=== PATIENT | female | born 1970 | race American Indian/Alaskan Native ===

== ENCOUNTER 2017-11-17 22:24 | Observation (INO) | payer OTHER ==
[2017-11-18 00:01] LABS: Basophils % (Auto) 0.3 % (0.0-1.8); Eosinophils % (Auto) 0.4 % (0.0-4.3); Hematocrit 44.8 % (30.3-42.9); Hemoglobin 15.5 gm/dl (10.1-14.3); Lymphocytes # (Auto) 2.2 K/mm3 (1.2-5.4); Lymphocytes % (Auto) 26.9 % (13.4-35.0); Mean Corpuscular HGB Conc 35 % (30-34); Mean Corpuscular Hemoglobin 31 pg (28-32); Mean Corpuscular Volume 88 fl (79-97); Monocytes # (Auto) 0.9 K/mm3 (0.0-0.8); Monocytes % (Auto) 10.9 % (0.0-7.3); Platelet Count 232 K/mm3 (140-440); Red Blood Count 5.09 M/mm3 (3.65-5.03); Red Cell Distribution Width 14.5 % (13.2-15.2)
[2017-11-18 00:09] LABS: BUN/Creatinine Ratio 17; Blood Urea Nitrogen 17 mg/dL (7-17); Calcium 10.1 mg/dL (8.4-10.2); Hemolysis Index 3
[2017-11-18] MEDS ORDERED: MORPHINE IV ONE (00:19)
[2017-11-18] MEDS ORDERED: ZOFRAN IV ONE (00:19)
--- NOTE | 2017-11-18 00:43 | Emergency Department Report ---
ED Chest Pain HPI - General Chief Complaint: Chest Pain Stated Complaint: CHEST PAIN Time Seen by Provider: 11/17/17 23:57 Source: patient Mode of arrival: Stretcher Limitations: No Limitations - History of Present Illness Initial Comments: 47 year old female with a past medical history of hypertension, asthma, HIV ( undetectable viral load), and obesity presents to the hospital with complaints of headache and chest pain. Patient has had a headache for 4 days. Pain is frontal and posterior. Pain has been constant, rated 5/10 in intensity, sharp in nature. No aggravating or alleviating factors. Patient did have blurred vision last night that has since improved. No focal weakness or numbness reported. Positive nausea without vomiting. This a.m. patient woke up with left-sided intermittent chest tightness with associated shortness of breath. Symptoms worsened throughout the day. Patient took her blood pressure at home and noted it to be elevated. She went to fire department BP was 210/110 and heart rate 141. Patient received saline 1 nitroglycerin 2 and blood pressure decreased to 155/105 and heart rate 136. Patient's chest pain improved after nitroglycerin headache persists. She denies previous history of stress testing , recent travel, DVT or PE.. She has not compliant with her blood pressure medications 1 week. She restarted the medication on the . Severity scale (0 -10): 5 - Related Data Home Medications Medication Instructions Recorded Confirmed Last Taken Lisinopril mg PO DAILY 07/02/16 Unknown Norvasc mg PO DAILY 07/02/16 Unknown Previous Rx's Medication Instructions Recorded Last Taken Type Ciprofloxacin HCl [Ciprofloxacin 500 mg PO BID #20 tablet 07/02/16 Unknown Rx TAB] Ondansetron [Zofran Odt] 4 mg PO Q8HR #20 tab.rapdis 07/02/16 Unknown Rx metroNIDAZOLE [Flagyl] 500 mg PO Q12HR #20 tab 07/02/16 Unknown Rx Allergies Allergy/AdvReac Type Severity Reaction Status Date / Time cephalexin monohydrate Allergy Hives Verified 07/02/16 01:38 [From Keflex] Heart Score - HEART Score History: Slightly suspicious EKG: Non-specific Age: 45-65 Risk factors: 1-2 risk factors Troponin: < normal limit HEART Score: 3 ED Review of Systems ROS: Stated complaint: CHEST PAIN Other details as noted in HPI Comment: All other systems reviewed and negative ED Past Medical Hx - Past Medical History Previous Medical History?: Yes Hx Hypertension: Yes Hx Asthma: Yes Hx HIV: Yes - Surgical History Past Surgical History?: Yes Additional Surgical History: hysterectomy, rectovaginal fistula repair, colon paras. - Social History Smoking Status: Never Smoker Substance Use Type: None - Medications Home Medications: Home Medications Medication Instructions Recorded Confirmed Last Taken Type Ciprofloxacin HCl [Ciprofloxacin 500 mg PO BID #20 tablet 07/02/16 Unknown Rx TAB] Lisinopril mg PO DAILY 07/02/16 Unknown History Norvasc mg PO DAILY 07/02/16 Unknown History Ondansetron [Zofran Odt] 4 mg PO Q8HR #20 tab.rapdis 07/02/16 Unknown Rx metroNIDAZOLE [Flagyl] 500 mg PO Q12HR #20 tab 07/02/16 Unknown Rx ED Physical Exam - General Limitations: No Limitations - Other Other exam information: General: No limitations, patient is alert in no acute distress Head exam: Atraumatic, normocephalic Eyes exam: Normal appearance ENT: Moist mucous membrane, normal oropharynx Neck exam: Normal inspection, full range of motion, no meningismus nontender Respiratory exam: Clear to auscultation bilateral, no wheezes, rales, crackles Cardiovascular: Mild tachycardia, regular rhythm, chest wall nontender Abdomen: Soft, nondistended, and nontender, with normal bowel sounds, no rebound, or guarding Extremity: Full range of motion normal inspection no deformity, no calf tenderness or edema Back: Normal Inspection, full range of motion, no tenderness Neurologic: Alert, oriented x3, cranial nerves intact, no motor or sensory deficit. NIH stroke scale equals 0 Psychiatric: normal affect, normal mood Skin: Warm, dry, intact and ED Course Vital Signs 11/17/17 11/17/17 11/17/17 22:55 23:00 23:12 Temperature 98.6 F Pulse Rate 112 H 99 H Respiratory 23 14 23 Rate Blood Pressure 146/97 135/85 Blood Pressure 146/97 [Left] O2 Sat by Pulse 99 99 99 Oximetry 11/17/17 11/17/17 11/17/17 23:16 23:17 23:30 Temperature Pulse Rate 96 H 96 H 95 H Respiratory 23 18 21 Rate Blood Pressure 132/87 Blood Pressure [Left] O2 Sat by Pulse 98 97 94 Oximetry 04/11/18/17 11/18/17 00:00 00:30 01:15 Temperature Pulse Rate 87 106 H Respiratory 24 15 Rate Blood Pressure 128/89 116/76 116/76 Blood Pressure [Left] O2 Sat by Pulse 95 97 98 Oximetry 11/18/17 11/18/17 11/18/17 01:26 01:30 01:56 Temperature Pulse Rate 76 Respiratory 20 18 16 Rate Blood Pressure 117/81 Blood Pressure [Left] O2 Sat by Pulse 93 Oximetry 11/18/17 11/18/17 02:00 02:30 Temperature Pulse Rate 80 73 Respiratory 19 15 Rate Blood Pressure 118/85 127/87 Blood Pressure [Left] O2 Sat by Pulse 93 Oximetry ED Medical Decision Making - Lab Data Result diagrams: 11/17/17 23:21 11/17/17 23:21 Lab Results 11/17/17 11/17/17 11/17/17 Range/Units 23:21 23:21 23:21 WBC 8.2 (4.5-11.0) K/mm3 RBC 5.09 H (3.65-5.03) M/mm3 Hgb 15.5 H (10.1-14.3) gm/dl Hct 44.8 H (30.3-42.9) % MCV 88 (79-97) fl MCH 31 (28-32) pg MCHC 35 H (30-34) % RDW 14.5 (13.2-15.2) % Plt Count 232 (140-440) K/mm3 Lymph % (Auto) 26.9 (13.4-35.0) % [place] % (Auto) 10.9 H (0.0-7.3) % Eos % (Auto) 0.4 (0.0-4.3) % Baso % (Auto) 0.3 (0.0-1.8) % Lymph # 2.2 (1.2-5.4) K/mm3 [place] # 0.9 H (0.0-0.8) K/mm3 Eos # 0.0 (0.0-0.4) K/mm3 Baso # 0.0 (0.0-0.1) K/mm3 Seg Neutrophils % 61.5 (40.0-70.0) % Seg Neutrophils # 5.0 (1.8-7.7) K/mm3 D-Dimer (0-234) ng/mlDDU Sodium 139 (137-145) mmol/L Potassium 3.8 (3.6-5.0) mmol/L Chloride 96.2 L (98-107) mmol/L Carbon Dioxide 30 (22-30) mmol/L Anion Gap 17 mmol/L BUN 17 (7-17) mg/dL Creatinine 1.0 (0.7-1.2) mg/dL Estimated GFR > 60 ml/min BUN/Creatinine Ratio 17 % Glucose 112 H (65-100) mg/dL Calcium 10.1 (8.4-10.2) mg/dL Troponin T < 0.010 (0.00-0.029) ng/mL HCG, Qual Negative (Negative) Urine Color (Yellow) Urine Turbidity (Clear) Urine pH (5.0-7.0) Ur Specific [place] (1.003-1.030) Urine Protein (Negative) mg/dL Urine Glucose (UA) (Negative) mg/dL Urine Ketones (Negative) mg/dL Urine Blood (Negative) Urine Nitrite (Negative) Urine Bilirubin (Negative) Urine Urobilinogen (<2.0) mg/dL Ur Leukocyte Esterase (Negative) Urine WBC (Auto) (0.0-6.0) /HPF Urine RBC (Auto) (0.0-6.0) /HPF U Epithel Cells (Auto) (0-13.0) /HPF Urine Bacteria (Auto) (Negative) /HPF Urine Opiates Screen Urine Methadone Screen Ur Barbiturates Screen Ur Phencyclidine Scrn Ur Amphetamines Screen U Benzodiazepines Scrn Urine Cocaine Screen U Marijuana (THC) Screen Drugs of Abuse Note 11/18/17 11/18/17 11/18/17 Range/Units 00:28 00:28 00:38 WBC (4.5-11.0) K/mm3 RBC (3.65-5.03) M/mm3 Hgb (10.1-14.3) gm/dl Hct (30.3-42.9) % MCV (79-97) fl MCH (28-32) pg MCHC (30-34) % RDW (13.2-15.2) % Plt Count (140-440) K/mm3 Lymph % (Auto) (13.4-35.0) % [place] % (Auto) (0.0-7.3) % Eos % (Auto) (0.0-4.3) % Baso % (Auto) (0.0-1.8) % Lymph # (1.2-5.4) K/mm3 [place] # (0.0-0.8) K/mm3 Eos # (0.0-0.4) K/mm3 Baso # (0.0-0.1) K/mm3 Seg Neutrophils % (40.0-70.0) % Seg Neutrophils # (1.8-7.7) K/mm3 D-Dimer 301.21 H (0-234) ng/mlDDU Sodium (137-145) mmol/L Potassium (3.6-5.0) mmol/L Chloride (98-107) mmol/L Carbon Dioxide (22-30) mmol/L Anion Gap mmol/L BUN (7-17) mg/dL Creatinine (0.7-1.2) mg/dL Estimated GFR ml/min BUN/Creatinine Ratio % Glucose (65-100) mg/dL Calcium (8.4-10.2) mg/dL Troponin T (0.00-0.029) ng/mL HCG, Qual (Negative) Urine Color Straw (Yellow) Urine Turbidity Clear (Clear) Urine pH 7.0 (5.0-7.0) Ur Specific [place] 1.004 (1.003-1.030) Urine Protein <15 mg/dl (Negative) mg/dL Urine Glucose (UA) Neg (Negative) mg/dL Urine Ketones Neg (Negative) mg/dL Urine Blood Sm (Negative) Urine Nitrite Neg (Negative) Urine Bilirubin Neg (Negative) Urine Urobilinogen < 2.0 (<2.0) mg/dL Ur Leukocyte Esterase Neg (Negative) Urine WBC (Auto) 1.0 (0.0-6.0) /HPF Urine RBC (Auto) 1.0 (0.0-6.0) /HPF U Epithel Cells (Auto) < 1.0 (0-13.0) /HPF Urine Bacteria (Auto) 2+ (Negative) /HPF Urine Opiates Screen Presumptive negative Urine Methadone Screen Presumptive negative Ur Barbiturates Screen Presumptive negative Ur Phencyclidine Scrn Presumptive negative Ur Amphetamines Screen Presumptive negative U Benzodiazepines Scrn Presumptive negative Urine Cocaine Screen Presumptive negative U Marijuana (THC) Screen Presumptive negative Drugs of Abuse Note Disclamer 04/30/18 Range/Units 02:53 WBC (4.5-11.0) K/mm3 RBC (3.65-5.03) M/mm3 Hgb (10.1-14.3) gm/dl Hct (30.3-42.9) % MCV (79-97) fl MCH (28-32) pg MCHC (30-34) % RDW (13.2-15.2) % Plt Count (140-440) K/mm3 Lymph % (Auto) (13.4-35.0) % [place] % (Auto) (0.0-7.3) % Eos % (Auto) (0.0-4.3) % Baso % (Auto) (0.0-1.8) % Lymph # (1.2-5.4) K/mm3 [place] # (0.0-0.8) K/mm3 Eos # (0.0-0.4) K/mm3 Baso # (0.0-0.1) K/mm3 Seg Neutrophils % (40.0-70.0) % Seg Neutrophils # (1.8-7.7) K/mm3 D-Dimer (0-234) ng/mlDDU Sodium (137-145) mmol/L Potassium (3.6-5.0) mmol/L Chloride (98-107) mmol/L Carbon Dioxide (22-30) mmol/L Anion Gap mmol/L BUN (7-17) mg/dL Creatinine (0.7-1.2) mg/dL Estimated GFR ml/min BUN/Creatinine Ratio % Glucose (65-100) mg/dL Calcium (8.4-10.2) mg/dL Troponin T < 0.010 (0.00-0.029) ng/mL HCG, Qual (Negative) Urine Color (Yellow) Urine Turbidity (Clear) Urine pH (5.0-7.0) Ur Specific [place] (1.003-1.030) Urine Protein (Negative) mg/dL Urine Glucose (UA) (Negative) mg/dL Urine Ketones (Negative) mg/dL Urine Blood (Negative) Urine Nitrite (Negative) Urine Bilirubin (Negative) Urine Urobilinogen (<2.0) mg/dL Ur Leukocyte Esterase (Negative) Urine WBC (Auto) (0.0-6.0) /HPF Urine RBC (Auto) (0.0-6.0) /HPF U Epithel Cells (Auto) (0-13.0) /HPF Urine Bacteria (Auto) (Negative) /HPF Urine Opiates Screen Urine Methadone Screen Ur Barbiturates Screen Ur Phencyclidine Scrn Ur Amphetamines Screen U Benzodiazepines Scrn Urine Cocaine Screen U Marijuana (THC) Screen Drugs of Abuse Note - EKG Data -: EKG Interpreted by Me EKG shows normal: sinus rhythm, axis (qrs 15), QRS complexes (qrsd 83), ST-T waves (flat lat t wave, no stemi) Rate: tachycardia (103) - EKG Data When compared to previous EKG there are: previous EKG unavailable - Radiology Data Radiology results: report reviewed ct head: naf CT ANGIO CHEST IMPRESSION: No evidence of pulmonary embolus or aortic dissection. No acute process in the chest. Soft tissue fullness in the left thyroid lobe. 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 ED Disposition Clinical Impression: Chest pain, Uncontrolled hypertension, Headache, Noncompliance with medication regimen, HIV (human immunodeficiency virus infection) Disposition: -09 OP ADMIT IP TO THIS HOSP Is pt being admited?: Yes Does the pt Need Aspirin: Yes Condition: Stable Time of Disposition: 04:13 (Dr Collier/hosp)
[2017-11-18 01:37] LABS: Bacteria,Urine 2+ /HPF (Negative); Bilirubin,Urine NEG (Negative); Blood,Urine SM (Negative); Color,Urine Straw (Yellow); Protein,Urine <15 mg/dL mg/dL (Negative); Urobilinogen,Urine < 2.0 mg/dL (<2.0)
--- NOTE | 2017-11-18 01:48 | Cat Scan Report ---
FINAL REPORT EXAM: CT HEAD/BRAIN WO CON HISTORY: marcial, htn TECHNIQUE: Routine axial imaging was obtained of the brain without IV contrast. FINDINGS: There is no evidence of acute stroke or hemorrhage. The ventricular system is appropriate in size and is symmetric. The basal cisterns appear normal. The visualized sinuses are clear. The mastoid air cells are well pneumatized. The calvarium appears intact. IMPRESSION: No acute intracranial process.
[2017-11-18 01:55] LABS: Amphetamine Screen,Urine PRESUMPTIVE NEGATIVE; Benzodiazepines Screen,Urine PRESUMPTIVE NEGATIVE; Cannabinoid Screen,Urine PRESUMPTIVE NEGATIVE; Cocaine Screen,Urine PRESUMPTIVE NEGATIVE; Methadone Screen,Urine PRESUMPTIVE NEGATIVE; Opiate Screen,Urine PRESUMPTIVE NEGATIVE
[2017-11-18] MEDS ORDERED: MORPHINE ONE (03:17)
--- NOTE | 2017-11-18 03:57 | Cat Scan Report ---
FINAL REPORT EXAM: CT ANGIO CHEST HISTORY: cp, elevated ddimer TECHNIQUE: A CT angiogram was performed following the intravenous injection of 100 cc of Omnipaque 350. Rotational, sagittal, and coronal MIP reconstructions were reviewed. FINDINGS: There is no evidence of pulmonary embolus or aortic dissection. The thoracic aorta is normal in caliber. The heart size is normal. Pericardial fluid is not seen. There is no evidence of adenopathy. The lungs are clear. Pleural fluid is not seen. In the upper abdomen the adrenal glands appear normal. At the thoracic inlet there is soft tissue fullness in the left thyroid lobe. The right lobe appears normal. The skeletal structures are well-maintained IMPRESSION: No evidence of pulmonary embolus or aortic dissection. No acute process in the chest. Soft tissue fullness in the left thyroid lobe. Further evaluation is recommended with outpatient thyroid sonography.
[2017-11-18] MEDS ORDERED: ASPIRIN PO ONE (04:17)
[2017-11-18] MEDS ORDERED: NITROSTAT SL PRN (06:23)
[2017-11-18] MEDS ORDERED: ZOFRAN IV PRN (06:24)
[2017-11-18] MEDS ORDERED: MORPHINE IV PRN (06:24)
[2017-11-18] MEDS ORDERED: TYLENOL PO PRN (06:24)
[2017-11-18] MEDS ORDERED: LEXISCAN IV ONE ×2 (08:58→09:01)
--- NOTE | 2017-11-18 09:02 | History and Physical Report ---
CHIEF COMPLAINT: Chest pain. HISTORY OF PRESENT ILLNESS: The patient is a 47-year-old who is presenting with chest pain, going on for about 4 days. The pain is in the anterior and posterior chest area and having constantly, intensity of about 5-10. Pain is sharp in consistency and these are associated with nausea, without vomiting. There is also history of associated shortness of breath. The pain seems to be seemed to be yesterday, 11/17/2017, got progressively worse that awoke the patient up earlier this morning. The pain is relieved with nitroglycerin. The patient also said that she missed out on her blood pressure medications last week and presented for further evaluation. There is no history of fever or chills and no history of cough. PAST MEDICAL HISTORY: Pertinent for hypertension, asthma, HIV infection. PAST SURGICAL HISTORY: Pertinent hysterectomy, rectovaginal fistula repair, colon surgery. FAMILY HISTORY: Noncontributory. SOCIAL HISTORY: The patient does not smoke, does not drink alcohol and does not use illicit drugs. MEDICATIONS: The patient is on ciprofloxacin 500 mg by mouth twice daily, lisinopril dose and frequently unknown, Norvasc dose and frequently unknown and also Zofran sublingual 4 mg every 8 hours p.r.n. for nausea and vomiting and Flagyl 500 mg by mouth q. 12 hours. ALLERGIES: THE PATIENT IS ALLERGIC TO CEPHALEXIN. REVIEW OF SYSTEMS: CONSTITUTIONAL: There is no fever, no chills, no diaphoresis. HEENT: There is no headache or sore throat. CARDIOVASCULAR: Chest pain is present. No orthopnea. RESPIRATORY: Shortness of breath present. No cough. GASTROINTESTINAL: There is nausea but no vomiting, no abdominal pain, diarrhea or constipation. NEUROLOGICAL: There is no numbness, no dizziness, no altered mental status. MUSCULOSKELETAL: There is no joint pain or swelling. DERMATOLOGICAL: There is no skin rash or itching. GENITOURINARY: There is fluid dysuria, hematuria or flank pain. Rest of system review is normal. PHYSICAL EXAMINATION: GENERAL: At the time of exam, the patient was found to be alert and oriented x 3, not in acute distress. VITAL SIGNS: At the time of admission of the patient showed temperature of 98.6 degrees Fahrenheit, pulse of 112, respiration 23, blood pressure 146/97, O2 sat of 99% on room air. HEENT Pupils to be equal, round, reactive to light and accommodation. Extraocular muscles intact. NECK: Supple with no JVD or carotid bruit. CARDIOVASCULAR SYSTEM: Show first and second heart, no gallops or murmurs. RESPIRATORY: Show good air entry on both sides of the lungs, with no abnormal breath sounds. GASTROINTESTINAL SYSTEM: Show abdomen to be full, soft, nontender, no organomegaly or rigidity. NEUROLOGICAL: No focal deficit. MUSCULOSKELETAL: Show no joint swelling or tenderness. DERMATOLOGICAL SYSTEM: No skin rash. GENITOURINARY SYSTEM: Showing no costovertebral angle tenderness. PERTINENT LABORATORY: The patient's lab results shows CBC with normal white count, elevated hemoglobin of 15.5 and elevated hematocrit of 44.8. Rest of CBC differential was unremarkable. Coagulation studies show slight increase in D-dimer of 301. The patient's chemistry was unremarkable. Cardiac enzymes show normal troponin level. Urinalysis was unremarkable. Urine drug screen came back negative. IMAGING STUDIES: The patient had a CT angiogram of the chest done because of elevated D-dimer and chest pain and the result came back showing no evidence of pulmonary embolism or aortic dissection. Also, the radiologist said there is no acute process in the chest; however, the soft tissue fullness in the left thyroid lobe was found and for that further evaluation is recommended with outpatient thyroid sonogram. Also, the patient also had CT of the head done that shows no acute intracranial process. DIAGNOSIS: 1. Chest pain. 2. Hypertension. 3. Headache. PLAN: The patient will be admitted to medical floor on telemetry and will have cardiac enzymes checked q. 6 hours x 2 more levels. The patient will be n.p.o. for Lexiscan stress test this morning and will be on nitro paste half inch to the anterior chest wall q.i.d. The patient will also be on sublingual nitroglycerin for breakthrough chest pain with a dose of 0.4 mg every 5 minutes as needed for chest pain and will be on IV morphine 2 mg every 3 hours as needed for chest pain. The patient will also be on IV Zofran 4 mg every 8 hours for nausea and vomiting and the patient will be on aspirin 325 mg by mouth daily as well as acetaminophen 650 mg every 4 hours for fever and headache. The patient will also be on oxygen by nasal cannula at 2 liter per minute and will be on her home medication as shown in the medication reconciliation section. JOB# [id number] [facility]
--- NOTE | 2017-11-18 09:43 | Progress Note ---
History Interval history: Patient seen and examined. She continues to complain of headache. No new complaints at this time. Hospitalist Physical - Constitutional Vitals: Temp Pulse Resp BP Pulse Ox 98.3 F 67 20 104/69 95 11/18/17 08:08 11/18/17 08:08 11/18/17 08:08 11/18/17 08:08 11/18/17 08:08 Results - Labs CBC & Chem 7: 11/17/17 23:21 11/17/17 23:21 Labs: Laboratory Last Values WBC 8.2 K/mm3 (4.5-11.0) 11/17/17 23:21 RBC 5.09 M/mm3 (3.65-5.03) H 11/17/17 23:21 Hgb 15.5 gm/dl (10.1-14.3) H 11/17/17 23:21 Hct 44.8 % (30.3-42.9) H 11/17/17 23:21 MCV 88 fl (79-97) 11/17/17 23:21 MCH 31 pg (28-32) 11/17/17 23:21 MCHC 35 % (30-34) H 11/17/17 23:21 RDW 14.5 % (13.2-15.2) 11/17/17 23:21 Plt Count 232 K/mm3 (140-440) 11/17/17 23:21 Lymph % (Auto) 26.9 % (13.4-35.0) 11/17/17 23:21 [place] % (Auto) 10.9 % (0.0-7.3) H 11/17/17 23:21 Eos % (Auto) 0.4 % (0.0-4.3) 11/17/17 23:21 Baso % (Auto) 0.3 % (0.0-1.8) 11/17/17 23:21 Lymph # 2.2 K/mm3 (1.2-5.4) 11/17/17 23:21 [place] # 0.9 K/mm3 (0.0-0.8) H 11/17/17 23:21 Eos # 0.0 K/mm3 (0.0-0.4) 11/17/17 23:21 Baso # 0.0 K/mm3 (0.0-0.1) 11/17/17 23:21 Seg Neutrophils % 61.5 % (40.0-70.0) 11/17/17 23:21 Seg Neutrophils # 5.0 K/mm3 (1.8-7.7) 11/17/17 23:21 D-Dimer 301.21 ng/mlDDU (0-234) H 11/18/17 00:38 Sodium 139 mmol/L (137-145) 11/17/17 23:21 Potassium 3.8 mmol/L (3.6-5.0) 11/17/17 23:21 Chloride 96.2 mmol/L (98-107) L 11/17/17 23:21 Carbon Dioxide 30 mmol/L (22-30) 11/17/17 23:21 Anion Gap 17 mmol/L 11/17/17 23:21 BUN 17 mg/dL (7-17) 11/17/17 23:21 Creatinine 1.0 mg/dL (0.7-1.2) 11/17/17 23:21 Estimated GFR > 60 ml/min 11/17/17 23:21 BUN/Creatinine Ratio 17 % 11/17/17 23:21 Glucose 112 mg/dL (65-100) H 11/17/17 23:21 Calcium 10.1 mg/dL (8.4-10.2) 11/17/17 23:21 Troponin T < 0.010 ng/mL (0.00-0.029) 11/18/17 02:53 HCG, Qual Negative (Negative) 11/17/17 23:21 Urine Color Straw (Yellow) 11/18/17 00:28 Urine Turbidity Clear (Clear) 11/18/17 00:28 Urine pH 7.0 (5.0-7.0) 11/18/17 00:28 Ur Specific [place] 1.004 (1.003-1.030) 11/18/17 00:28 Urine Protein <15 mg/dl mg/dL (Negative) 11/18/17 00:28 Urine Glucose (UA) Neg mg/dL (Negative) 11/18/17 00:28 Urine Ketones Neg mg/dL (Negative) 11/18/17 00:28 Urine Blood Sm (Negative) 11/18/17 00:28 Urine Nitrite Neg (Negative) 11/18/17 00:28 Urine Bilirubin Neg (Negative) 11/18/17 00:28 Urine Urobilinogen < 2.0 mg/dL (<2.0) 11/18/17 00:28 Ur Leukocyte Esterase Neg (Negative) 11/18/17 00:28 Urine WBC (Auto) 1.0 /HPF (0.0-6.0) 11/18/17 00:28 Urine RBC (Auto) 1.0 /HPF (0.0-6.0) 11/18/17 00:28 U Epithel Cells (Auto) < 1.0 /HPF (0-13.0) 11/18/17 00:28 Urine Bacteria (Auto) 2+ /HPF (Negative) 11/18/17 00:28 Urine Opiates Screen Presumptive negative 11/18/17 00:28 Urine Methadone Screen Presumptive negative 11/18/17 00:28 Ur Barbiturates Screen Presumptive negative 11/18/17 00:28 Ur Phencyclidine Scrn Presumptive negative 11/18/17 00:28 Ur Amphetamines Screen Presumptive negative 11/18/17 00:28 U Benzodiazepines Scrn Presumptive negative 11/18/17 00:28 Urine Cocaine Screen Presumptive negative 11/18/17 00:28 U Marijuana (THC) Screen Presumptive negative 11/18/17 00:28 Drugs of Abuse Note Disclamer 11/18/17 00:28
[2017-11-18] MEDS ORDERED: HEPARIN SUB-Q SCH (10:00)
[2017-11-18] MEDS ORDERED: ASPIRIN PO SCH (10:00)
[2017-11-18] MEDS ORDERED: PERCOCET 5/325 PO PRN (11:44)
[2017-11-18] MEDS: NITRO-BID 2% TP SCH ×2 (11:51→14:12)
[2017-11-18 14:13] VITALS: BP 106/67
--- NOTE | 2017-11-18 15:16 | Discharge Summary ---
<HUGH KHAN - Last Filed: 11/18/17 14:57> Providers - Providers Date of Admission: 11/18/17 04:32 Date of discharge: 11/18/17 Attending physician: BERNARDA LUNA Primary care physician: RADIOLOGY SPECIALIST Hospitalization Condition: Stable Hospital course: Patient is a 47-year-old -[place] woman who presented to the emergency department with complaints of headache and chest pain. Patient underwent cardiac workup which began with serial cardiac enzymes that were negative. Cardiology services for consult and and patient underwent a Lexiscan stress test that was negative for ischemia. Patient had an elevated d- dimer and CTA was ordered which showed no evidence of PE. Etiology of patient' s chest pain is likely that of GERD and Pepcid was prescribed. Patient is medically stable for discharge with instructions to follow up with outpatient neurologist if headache persists. Vision exam was also recommended for patient to complete as an outpatient. Patient was instructed to follow up with primary care provider within 1 week of discharged. Discharge diagnoses Atypical chest plain Hypertension Headache Elevated d-dimer Disposition: TO HOME OR SELFCARE Time spent for discharge: 32 minutes Core Measure Documentation - Palliative Care Palliative Care/ Comfort Measures: Not Applicable - Core Measures Any of the following diagnoses?: none Exam - Constitutional Vitals: Temp Pulse Resp BP Pulse Ox 98.3 F 76 18 106/67 94 11/18/17 08:08 11/18/17 10:00 11/18/17 10:00 11/18/17 14:12 11/18/17 14:02 General appearance: Present: no acute distress, well-nourished - EENT Eyes: Present: PERRL ENT: hearing intact, clear oral mucosa - Neck Neck: Present: supple, normal ROM - Respiratory Respiratory effort: normal Respiratory: bilateral: CTA - Cardiovascular Heart Sounds: Present: S1 & S2. Absent: rub, click - Extremities Extremities: pulses symmetrical, No edema Peripheral Pulses: within normal limits - Abdominal General gastrointestinal: Present: soft, non-tender, non-distended, normal bowel sounds - Integumentary Integumentary: Present: clear, warm, dry - Musculoskeletal Musculoskeletal: gait normal, strength equal bilaterally - Psychiatric Psychiatric: appropriate mood/affect, intact judgment & insight - Neurologic Neurologic: CNII-XII intact, moves all extremities Plan Diet: low fat, low cholesterol, low salt Additional Instructions: Please get your vision tested if headache persists. You may also follow up with neurologist for persistant headache. Follow up with: PRIMARY CARE, [Primary Care Provider] - 3-5 Days MANASA CLINE MD [Staff Physician] - 7 Days Forms: Work/School Release Form Prescriptions: Famotidine [Pepcid] 20 mg PO BID #20 tablet <BERNARDA LUNA - Last Filed: 11/18/17 18:33> Providers - Providers Date of Admission: 11/18/17 04:32 Attending physician: BERNARDA LUNA Primary care physician: RADIOLOGY SPECIALIST Hospitalization Hospital course: I saw and evaluated the patient. I agree with the findings and the plan of care as documented in the Nurse Practitioner's~note, with the following corrections and additions. Admitted with chest pain Stress test negative Elevated d-dimer is, CTA negative for PE Patient's symptoms significantly improved Patient's chest pain is noncardiac, probably secondary to GERD Advice Pepcid Patient also complains of headache, CT head negative, [id number] pain medications If no improvement, may need to see outpatient neurology for further evaluation and management And or ophthalmology for vision evaluation Patient is stable at the time of discharge Exam - Constitutional Vitals: Temp Pulse Resp BP Pulse Ox 98.3 F 76 18 106/67 94 11/18/17 08:08 11/18/17 14:26 11/18/17 10:00 11/18/17 14:12 11/18/17 14:02
--- NOTE | 2017-11-19 23:08 | Treadmill Report ---
THALLIUM STRESS TEST LEFT VENTRICLE: Left ventricular chamber size is within normal spread. Perfusion study demonstrates homogeneous uptake of the tracer in all segments, no significant perfusion defects identified. Gated analysis demonstrates normal left ventricular systolic function, ejection fraction of 70%. CONCLUSION: Normal myocardial perfusion study. JOB# [id number] CA/NTS
== END 2017-11-18 17:52 | disposition home or self-care (01) ==
LOC: ED 22:24 → INTOOBSV 11-18 04:32 → 4A 11-18 04:32
PROVIDERS: ADMIT Internal Medicine; ATTEND Internal Medicine
DX: R07.89 Other chest pain (principal); I10 Essential (primary) hypertension; R51 Headache; J45.909 Unspecified asthma, uncomplicated; R79.1 Abnormal coagulation profile; E66.9 Obesity, unspecified; Z68.36 Body mass index [BMI] 36.0-36.9, adult
CPT/HCPCS: 36415; 70450; 71275; 78452; 80048; 80307; 81001; 84484; 84703; 85025; 85379; 93005; 93010; 93017; 96372; 96374; 96375; 99285; A9502; G0378; J1644; J2270; J2405; J2785; Q9967